=== PATIENT | female | born 1950 | race Caucasian/White ===

== ENCOUNTER → 2017-06-22 | Outpatient (CLI) | payer MEDICARE, BC | LOC: RAD 12:57 | DX: N94.9 Unspecified condition associated with female genital organs and menstrual cycle (principal); R35.0 Frequency of micturition ==

== ENCOUNTER 2017-07-06 09:00 | Outpatient (RCR) | payer MEDICARE, BC | END 2017-07-06 09:30 | disposition home or self-care (01) | LOC: PT 09:00 | DX: M25.512 Pain in left shoulder (principal); M25.511 Pain in right shoulder | CPT/HCPCS: G8978-GP; G8979-GP ==

== ENCOUNTER → 2017-12-23 | Outpatient (CLI) | payer MEDICARE, BC | LOC: RAD 09:11 | DX: M19.012 Primary osteoarthritis, left shoulder (principal); M25.712 Osteophyte, left shoulder; M19.011 Primary osteoarthritis, right shoulder ==

== ENCOUNTER → 2021-03-07 | Day surgery (SDC) | payer MEDICARE, BC | LOC: MSO 07:03 | DX: R19.5 Other fecal abnormalities (principal); K21.9 Gastro-esophageal reflux disease without esophagitis; D12.2 Benign neoplasm of ascending colon; K62.1 Rectal polyp; K44.9 Diaphragmatic hernia without obstruction or gangrene; R10.13 Epigastric pain; Z79.899 Other long term (current) drug therapy; Z87.891 Personal history of nicotine dependence; Z90.89 Acquired absence of other organs | CPT/HCPCS: 00813; J2704; J7120 ==

== ENCOUNTER → 2021-05-01 | Outpatient (CLI) | payer MEDICARE, BC | LOC: RAD 08:00 | DX: R91.1 Solitary pulmonary nodule (principal) | CPT/HCPCS: Q9967 ==

== ENCOUNTER → 2021-11-20 | Outpatient (CLI) | payer MEDICARE, BC | LOC: RAD 07:30 | DX: M19.012 Primary osteoarthritis, left shoulder (principal); M17.11 Unilateral primary osteoarthritis, right knee ==

== ENCOUNTER → 2023-07-13 | Outpatient (CLI) | payer MEDICARE, BC | LOC: RAD 10:00 | DX: R10.2 Pelvic and perineal pain (principal) ==

== ENCOUNTER → 2024-06-22 | Outpatient (CLI) | payer MEDICARE, BC | LOC: RAD 13:59 | DX: K21.9 Gastro-esophageal reflux disease without esophagitis (principal); M25.561 Pain in right knee ==